=== PATIENT | female | born 1980 | race Hispanic/Latino ===

== ENCOUNTER 2017-02-05 06:21 | Observation (INO) | payer BC, SELFPAY ==
[2017-02-05 06:43] VITALS: BMI 29.0
[2017-02-05] MEDS ORDERED: LR w/ Pitocin 40 units/1000 ML BAG IV SCH (07:45)
[2017-02-05] MEDS ORDERED: LR / Pitocin 40 units/1000 ml 1,000 ML IV SCH (08:00)
[2017-02-05 08:10] LABS: ALT (SGPT) 14 U/L (8-55); AST (SGOT) 22 U/L (5-34); Alkaline Phosphatase 108 U/L (40-150); Anion Gap 14 mmol/L (10-20); BUN (Urea Nitrogen) 8 mg/dL (7.0-18.7); Bilirubin, Total 0.3 mg/dL (0.2-1.2); Calc. Creatinine Clearance 152 mL/min (70-130); Calcium 8.5 mg/dL (7.8-10.44); Carbon Dioxide 18 mmol/L (22-29); Chloride 105 mmol/L (98-107); Estimated GFR-MDRD Greater than 90; Globulin 2.2 g/dL (2.4-3.5); Protein, Total 5.3 g/dL (6.0-8.3)
[2017-02-05 08:25] LABS: #Lymphocytes 1.7 thou/uL (1.20-3.40); #Monocytes 0.7 thou/uL (0.11-0.59); #Neutrophils 13.4 thou/uL (1.40-6.50); %Basophils 0.2 % (0.0-1.0); %Eosinophils 0.3 % (0.0-10.0); %Lymphocytes 10.8 % (21.0-51.0); %Monocytes 4.3 % (0.0-10.0); Hematocrit 31.4 % (36.0-47.0); Mean Platelet Volume 8.3 fL (7.4-10.4); Red Blood Cell (RBC) Count 3.69 mill/uL (4.20-5.40); White Blood Cell (WBC) Count 15.8 thou/uL (4.8-10.8)
--- NOTE | 2017-02-05 09:45 | PDOC.EVN ---
Event Note - Event Note Event Note: I spoke with the patient regarding her lab and ultrasound results. At this point, does not require transfusion and bleeding now scant. Fundus firm. I discussed her risk factors for infection and sepsis including multiple uterine evacuations and soaking in bathtub after delivery and would consider antibiotics. Patient would rather avoid antibiotics for prophylaxis and use her herb capsules that she has at home. Currently afebrile at 99.2. I strongly encouraged her to check her temperature regularly and to return to the hospital for a temperature over 100.4 for antibiotic treatment. Will continue her pitocin and regular vital signs. If afebrile when finished with pitocin, patient will be discharged home.
--- NOTE | 2017-02-05 09:52 | ULT ---
PELVIC ULTRASOUND: HISTORY: hemorrhage after home . FINDINGS: uterus is noted. There is echogenicity in the endometrial cavity which could represent re tained blood products and/or retained placenta. Ovaries are not identified. IMPRESSION: uterus with abnormal echogenicity in the endometrial cavity. POS: [facility]
[2017-02-05 16:03] VITALS: BP 107/71; TEMP 99.3
--- NOTE | 2017-02-06 00:04 | HP ---
DATE OF SERVICE: 02/05/2017 CHIEF COMPLAINT: hemorrhage after home . HISTORY OF PRESENT ILLNESS: At the time of presentation, Ms. See is a 6, now para 4 who is status post delivery of her fourth child this morning at home with a home burping support architect. Montez mclaughlin delivered at approximately 2:00 a.m. Estimated blood loss in the delivery was 200-300 mL. Several hours after delivery, patient had several episodes of heavy vaginal bleeding with passage of clots a nd two manual evacuation of clot from the uterus by the support architect. Initially, she did not receive any Pitocin or other uterotonics , but after developing the bleeding, she received Methergine 0 .2 mg p.o., Cytotec 800 mcg sublingually and then IV was started and Pitocin was initiated. Patient denies any fever or chills. She denies any vomiting, constipation, or diarrhea. She denies any cardiovascular or respiratory complaints. Apparently, there was a first-degree perineal lacerati on that the patient declined repair for. She has voided several times since the delivery. REVIEW OF SYSTEMS: Per HPI. PAST MEDICAL HISTORY: Negative. PAST SURGICAL HISTORY: D&C for incomplete at 9 weeks this was complicated by hemorrhage, fo r which the patient received 1 unit of PRBCs. MEDICATIONS: [id number]-ryywlox supplements only. ALLERGIES: No known drug allergies. PHYSICAL EXAMINATION: VITAL SIGNS: Within normal limits. Patient's temperature is 100.2. GENERAL: Nontoxic appearing female in no acute distress. HEENT: Normocephalic, atraumatic. LUNGS: Clear to auscultation. CARDIOVASCULAR: Regular rate and rhythm. ABDOMEN: Soft, nontender, nondistended. No rebound, no guarding. GENITOURINARY: Fundus is firm and at the umbilicus. There is a first-degree laceration which is unr epaired, but hemostatic. Bimanual exam was performed and there was no significant clots extracted fr om the lower uterine segment. No focal tears were palpated. Inpatient's vaginal bleeding is scant a t the time of my exam. EXTREMITIES: Without cyanosis, clubbing, or edema. NEUROLOGIC: Alert and oriented x3. No focal deficits. ASSESSMENT AND PLAN: day #0, status post home complicated by hemorrhage estimated at approximately 1000 mL by the support architect. Patient's vaginal bleeding is currently scant. H er fundus was firm. We will plan to obtain a CBC, CMP, fibrinogen as well as an ultrasound. Given t he temperature of 100.2 in the context of two manual evacuation of the uterus and patient having hayes en in the tub for bath after delivery. Would strongly consider antibiotics as well. We will be sign ing this patient out to Dr. Dexter.
--- NOTE | 2017-02-06 01:44 | DIS ---
DATE OF ADMISSION: 02/05/2017 DATE OF DISCHARGE: 02/05/2017 DIAGNOSIS: hemorrhage. HOSPITAL COURSE: The patient arrived to the hospital status post a spontaneous vaginal delivery at home with her bleacher lard. Following delivery, she had approximately 1000 mL blood loss. She was brought in to the hospital by her bleacher lard for evaluation and received Methergine, Cytotec and Pitocin on the way. After arrival, her bleeding improved to scant with further Pitocin administration. She had a transvaginal ultrasound performed, which per the report showed some heterogeneous material in the uterine cavity which could be blood or retained products. However, upon review of the ultrasound images with Dr. Lo, we felt that the findings appeared normal for state and since the patient clinically improved, the patient and I agreed that we could continue with expectant management. I did discuss with the patient her risk factors for uterine infection with manual uterine evacuation of clot as well as sitting in bathtub following delivery and recommended antibiotic prophylaxis; however, the patient wished to use olive leaf extract that she had at home, so as not to disrupt her gut francy. I strongly encouraged the patient to check her temperature multiple times per day for the next few days and to return for fever over 100.4 or heavy bleeding and she agreed. Her vital signs remained stable and she did not require a transfusion, so the patient wished to go home. DIET: Regular. ACTIVITY: Pelvic rest. FOLLOWUP: Follow up with her bleacher lard as previously scheduled. INSTRUCTIONS: The patient was instructed multiple times to return for fever over 100.4, heavy vaginal bleeding, or other concerns. ANTWAN
== END 2017-02-05 17:50 | disposition home or self-care (01) ==
LOC: L&D/OP 06:21 → L&D 10:18
PROVIDERS: ADMIT Obstetrics & Gynecology Obstetrics; ATTEND Obstetrics & Gynecology Obstetrics
DX: O72.1 Other immediate postpartum hemorrhage (principal); Z98.890 Other specified postprocedural states
CPT/HCPCS: 36415; 76857; 80053; 85025; 85384; 86850; 86900; 86901; 96365; 96366; G0378

== ENCOUNTER 2017-11-17 15:20 | Outpatient (CLI) | payer BC ==
--- NOTE | 2017-11-17 16:09 | ULT ---
THYROID ULTRASOUND: History: Lump in the neck. Technique: Multiplanar grayscale and color doppler images were obtained in a thyroid ultrasound. FINDINGS: The left thyroid lobe contains multiple small nodules and cysts. The largest nodule is well circumscr ibed and mixed solid/cystic. No suspicious calcifications are seen within this nodule. This measures 1.8 cm in greatest dimension. The thyroid lobes measure 4.3 and 4.6 cm in length on the right and lef t, respectively. IMPRESSION: Multinodular thyroid. The largest nodule in the left lobe is a TIRADS category 2 lesion, which is not suspicious and follow up or biopsy is not recommended per recent recommendations. POS: OFF
== END 2017-11-17 15:21 | disposition home or self-care (01) ==
LOC: BICULT 15:20
PROVIDERS: ATTEND Family Medicine
DX: R22.1 Localized swelling, mass and lump, neck (principal); E04.2 Nontoxic multinodular goiter
CPT/HCPCS: 76536